=== PATIENT | male | born 1965 | race Caucasian/White ===

== ENCOUNTER → 2023-01-06 16:11 | Outpatient (BNVA) | payer OTHER, SELFPAY | PROVIDERS: PCP Family Medicine; Visit Provider Nurse Practitioner Family | DX: R21 Rash and other nonspecific skin eruption (principal); Z13.6 Encounter for screening for cardiovascular disorders | CPT/HCPCS: 80053; 80061; 84443; 85025 ==

== ENCOUNTER 2023-01-23 09:27 | Outpatient (CLI) | payer OTHER, SELFPAY ==
--- NOTE | 2023-01-23 09:45 | US_ITS ---
WS: [id number] ULTRASOUND SOFT TISSUES RIGHT neck. HISTORY: R22.1 - Localized swelling, mass and lump, neck COMPARISON: None available. TECHNIQUE: 2-D and color Doppler imaging is submitted. There is a soft tissue mass with variable echogenicity along the RIGHT lateral neck. This corresponds to the region of interest. Mass measures 5.0 x 3.0 x 4.0 cm. Variable echogenicity within the mass w ith only minimal vascularity in the solid components. IMPRESSION: Solid heterogeneous mass on the RIGHT lateral neck. Corresponds to the palpable abnormality. Abnormal lymph node or mass associated with the parotid or submandibular gland should be considered. Consider follow-up neck CT with IV contrast.
== END 2023-01-23 09:28 | disposition home or self-care (01) ==
PROVIDERS: PCP Family Medicine; Visit Provider Family Medicine
DX: R22.1 Localized swelling, mass and lump, neck (principal)
CPT/HCPCS: 76536

== ENCOUNTER 2023-02-19 13:17 | Outpatient (CLI) | payer OTHER, SELFPAY ==
--- NOTE | 2023-02-19 13:24 | CT_ITS ---
WS: [id number] CT NECK TECHNIQUE: Contrast-enhanced CT of the neck with coronal and sagittal reformatted images. CLINICAL INFORMATION: R22.1 - Localized swelling, mass and lump, neck COMPARISON: Ultrasound soft tissue 01/23/2023 DLP: 217.[address] scans at [facility] use at least one of these dose optimization techniques: automated e xposure control; mA and/or kV adjustment per patient size (includes targeted exams where dose is matc hed to clinical indication); or iterative reconstruction. FINDINGS: Comparison recent ultrasound. Heterogeneously enhancing mixed attenuation RIGHT neck mass posterior t o the RIGHT submandibular gland and anterior to the sternocleidomastoid. This measures approximately 4.0 x 2.7 x 5.9 cm AP by transverse by craniocaudal. 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 Adjacent contiguous smaller similar-appearing surrounding lymph nodes. Loss of the fat plane in the abutting submandibular gland and sternocleidomastoid. Normal posterior nasopharynx. Normal parapharyngeal fat. Parotid glands are normal. LEFT submandibula r gland is normal. Visualized [place] tonsils are normal. No evidence of supraglottic or glottic mas s. Normal subglottic airway. Thyroid gland appears normal. Lung apices are well aerated. Straightening of the normal cervical lord osis. Mild spondylitic changes. Disc osteophyte complex at C5-6 with mild central canal stenosis. Par tially visualized paranasal sinuses are well aerated. Mastoid air cells are well aerated. IMPRESSION: 1. Heterogeneous enhancing masslike lymphadenopathy RIGHT neck posterior to the submandibular gland and anterior to the sternocleidomastoid described above. Findings most compatible with neoplasm. [facility] consultation and PET/CT. 2. No left-sided lymphadenopathy. 3. No evidence of supraglottic or glottic mass. Visualized subglottic airway is patent. [place] ton sils appear normal. 4. No other acute findings.
[2023-02-19] MEDS: iohexol 350 mg/mL 500 mL Btl (per mL) IV (13:32)
== END 2023-02-19 13:18 | disposition home or self-care (01) ==
LOC: RAD 13:21
PROVIDERS: PCP Family Medicine; Visit Provider Family Medicine
DX: R59.0 Localized enlarged lymph nodes (principal)
CPT/HCPCS: 70491; Q9967